=== PATIENT | female | born 1950 | race Caucasian/White ===

== ENCOUNTER → 2017-05-26 | Outpatient (CLI) | payer MEDICARE ==
[~2017-05-26] MED LIST: BARIUM SUSPENSION 105% (LIQUID POLIBAR PLUS) 240 ML/DOSE PO ONE; BARIUM SUSPENSION 60% (LIQUID EZ PAQUE) 240 ML DOSE PO ONE
--- NOTE | 2017-05-26 12:13 | Diagnostic Imaging Report ---
EXAMINATION: Upper GI study, double contrast. Funeral Pre Arrangement Counselor image of the abdomen was performed. After the oral administration of gas forming granules, the patient drank thick and thin barium with visualization under fluoroscopy, with spot images taken over the esophagus, stomach and duodenum and followed by overhead images in the chest and abdomen. INDICATION: Gastroesophageal reflux. FLUOROSCOPY TIME: One minutes and 15 seconds. FINDINGS: Funeral Pre Arrangement Counselor images of the abdomen demonstrate mild to moderate amount of fecal material. There is a right hip replacement and surgical clips in the upper right abdomen. The esophagus demonstrates normal caliber with no strictures. The mucosal pattern demonstrates no filling defects, diverticulum or ulceration. There is normal relaxation of the distal sphincter. There is however from a tertiary contractions suggestive of mild motility dysfunction probably related to age. There is no hiatal hernia. The stomach demonstrates normal distensibility with normal appearance of the mucosal folds. There are no ulcers or evidence of mass. The duodenal bulb and sweep appear normal. IMPRESSION: No significant abnormality. Dictated by: Dictated on workstation # [id number]
== END ==
LOC: RAD 10:26
PROVIDERS: ATTEND Surgery
DX: K21.9 Gastro-esophageal reflux disease without esophagitis (principal)
CPT/HCPCS: 74241

== ENCOUNTER 2017-06-15 12:46 | Outpatient (CLI) | payer MEDICARE, OTHER ==
[~2017-06-15] VITALS: Ht 147.3 cm; Wt 73.0 kg
[2017-06-15 13:02] VITALS: BP 152/73
[2017-06-15] MEDS ORDERED: METF500T4 PO (15:08)
[2017-06-15] MEDS ORDERED: PARO20TA5 PO (15:08)
[2017-06-15] MEDS ORDERED: AMLO5TAB2 PO (15:08)
[2017-06-15] MEDS ORDERED: GABA-488 PO (15:08)
[2017-06-15] MEDS ORDERED: HYDR25TA4 PO (15:08)
[2017-06-15] MEDS ORDERED: VNL37.5T PO (15:08)
[2017-06-15] MEDS ORDERED: POLY17PO6 PO (15:12)
[2017-06-15] MEDS ORDERED: PEDI1TAB35 PO (15:13)
== END 2017-06-15 13:15 | disposition home or self-care (01) ==
LOC: PREOP 12:46
PROVIDERS: ATTEND Surgery
DX: Z01.818 Encounter for other preprocedural examination (principal); E66.01 Morbid (severe) obesity due to excess calories
CPT/HCPCS: 87081

== ENCOUNTER 2017-06-18 11:22 | Inpatient (IN) | payer MEDICARE, OTHER ==
[~2017-06-18] VITALS: Ht 147.3 cm; Wt 73.0 kg
[~2017-06-18 11:22] MED LIST changes: +AMLO5TAB2 PO; -BARIUM SUSPENSION 105% (LIQUID POLIBAR PLUS) 240 ML/DOSE PO ONE; -BARIUM SUSPENSION 60% (LIQUID EZ PAQUE) 240 ML DOSE PO ONE; +GABA-488 PO; +HYDR25TA4 PO; +METF500T4 PO; +PARO20TA5 PO; +PEDI1TAB35 PO; +POLY17PO6 PO; +VNL37.5T PO
[2017-06-18 12:05] VITALS: BP 140/70
[2017-06-18] MEDS: LACTATED RINGERS 1,000 ML IV PRN ×2 (12:45→15:30)
[2017-06-18] MEDS ORDERED: BUP/EPI 0.5% 1:200,000 (MARCAINE) 10ML VIAL IJ ONE (12:49)
[2017-06-18] MEDS ORDERED: ROCURONIUM 50 MG/5 ML (ZEMURON) VIAL IV ONE ×2 (13:13→15:08)
[2017-06-18] MEDS ORDERED: LIDOCAINE PF 2% 5 ML (XYLOCAINE) VIAL ONE (13:13)
[2017-06-18] MEDS ORDERED: proPOfol 200 MG/20 ML (DIPRIVAN) VIAL IV ONE (13:13)
[2017-06-18] MEDS ORDERED: fentaNYL INJECTION 100 MCG/2 ML AMP ONE ×2 (13:13→15:19)
[2017-06-18] MEDS ORDERED: ONDANSETRON 4 MG/2 ML (SDV) Z0FRAN IV ONE (13:15)
[2017-06-18] MEDS ORDERED: MIDAZOLAM 2 MG/2 ML (VERSED) VIAL IV ONE (13:15)
[2017-06-18] MEDS ORDERED: ceFAZolin 1 GM/NS 50 ML IVPB IV ONE ×2 (13:15)
[2017-06-18] MEDS ORDERED: FAMOTIDINE 20MG/2ML IV (PEPCID) IV ONE (13:15)
--- NOTE | 2017-06-18 13:24 | Progress Note-Pre Operative ---
Pre-Operative Progress Note H&P Reviewed The H&P was reviewed, patient examined and no changes noted. Date Seen by Provider: Jun 18, 2017 Time Seen by Provider: 13:00 Date H&P Reviewed: Jun 18, 2017 Time H&P Reviewed: 13:00 Pre-Operative Diagnosis: morbid obesity, diabetes SEBASTIÁN HUIZAR MD Jun 18, 2017 1:24 pm
[2017-06-18] MEDS ORDERED: morphine INJ 10 MG/ML 1ML (SYR OR VIAL) ONE (14:13)
[2017-06-18] MEDS ORDERED: MEPERIDINE (DEMEROL) INJ 50 MG/ML ONE (14:13)
[2017-06-18] MEDS ORDERED: SEVOFLURANE (ULTANE) 15 ML INHAL SOLN ONE ×8 (14:26→16:07)
[2017-06-18 16:00] VITALS: BP 182/83
[2017-06-18] MEDS ORDERED: NEOSTIGMINE (BLOXIVERZ ) 1 MG/1ML 10 ML VIAL ONE (16:06)
[2017-06-18] MEDS ORDERED: GLYCOPYRROLATE 0.2 MG/ML (ROBINUL) 2 ML VIAL ONE (16:06)
[2017-06-18] MEDS ORDERED: NS IV 1000 ML 1,000 ML IV SCH (16:18)
--- NOTE | 2017-06-18 16:18 | Progress Note-Post Operative ---
Post-Operative Progess Note Surgeon (s)/Digital Media Designer (s) Surgeon SEBASTIÁN HUIZAR MD Digital Media Designer: jeff ward MAINTENANCE CARPENTER Pre-Operative Diagnosis morbid obesity, diabetes Post-Operative Diagnosis same Procedure & Operative Findings Date of Procedure 06/18/17 Procedure Performed/Findings laparoscopic gastric sleeve resection. Anesthesia Type GET Estimated Blood Loss Estimated blood loss (mL): minimal Specimens/Packing Specimens Removed stomach SEBASTIÁN HUIZAR MD Jun 18, 2017 4:18 pm
[2017-06-18] MEDS ORDERED: diphenhydrAMINE 50 MG/ML INJ (BENADRYL) IVP PRN (16:30)
[2017-06-18] MEDS ORDERED: ONDANSETRON 4 MG/2 ML (SDV) Z0FRAN IV PRN (16:30)
[2017-06-18] MEDS ORDERED: diphenhydrAMINE 50 MG/ML INJ (BENADRYL) IV PRN (16:30)
[2017-06-18] MEDS ORDERED: METOCLOPRAMIDE INJ 10 MG/2 ML (REGLAN) IV PRN (16:30)
[2017-06-18] MEDS ORDERED: fentaNYL PCA 300 MCG/30 ML VIAL IV PRN (16:30)
[2017-06-18] MEDS ORDERED: oxyCODONE 20 MG/1 ML ORAL CONC (RoxiCODONE) CHARGE PER 1 ML PO PRN (16:30)
[2017-06-18] MEDS ORDERED: RT-ALBUTEROL SULF 2.5 MG/3 ML PRE-MIX VIAL INH SCH (16:30)
[2017-06-18] MEDS ORDERED: NALOXONE 0.4 MG/ML 1 ML (NARCAN) VIAL IV PRN (16:30)
[2017-06-18] MEDS ORDERED: LABETALOL HCL 20 MG/4 ML VIAL IV ONE (16:45)
[2017-06-18] MEDS ORDERED: morphine INJ 10 MG/ML 1ML (SYR OR VIAL) IVP PRN (16:45)
[2017-06-18] MEDS ORDERED: ONDANSETRON 4 MG/2 ML (SDV) Z0FRAN IVP PRN (16:45)
[2017-06-18] MEDS ORDERED: PROMETHAZINE INJ 25 MG/ML (PHENERGAN) AMP IVP PRN (16:45)
[2017-06-18] MEDS ORDERED: HYDROmorphone (DILAUDID) 2 MG/ML VIAL IVP PRN (16:45)
[2017-06-18] MEDS: LACTATED RINGERS 1,000 ML IV SCH ×2 (16:51→18:49)
[2017-06-18] MEDS: metroNIDAZOLE 500MG/100ML IVPB 100 ML IV SCH (17:05)
[2017-06-18] MEDS ORDERED: hydrALAZINE (APESOLINE) 20 MG/ML VIAL IV ONE (17:30)
[2017-06-18 17:49] VITALS: BP 182/83
[2017-06-18] MEDS: ONDANSETRON 4 MG/2 ML (SDV) Z0FRAN IVP SCH (17:55)
[2017-06-18] MEDS: METOCLOPRAMIDE INJ 10 MG/2 ML (REGLAN) IVP SCH (17:55)
[2017-06-18 18:49] VITALS: BP 181/82
[2017-06-18 20:20] VITALS: BP 179/80
[2017-06-18] MEDS: meTOprolol 5 MG/5 ML (LOPRESSOR) VIAL IVP SCH (20:27)
[2017-06-18] MEDS: ENOXAPARIN 30 MG/0.3 ML (LOVENOX) SYR SC SCH (20:27)
[2017-06-18] MEDS ORDERED: INFLUENZA TRIvalent 2017-2018 0.5 ML/45 MCG SYR IM ONE (20:45)
[2017-06-18 21:13] VITALS: BP 181/90
[2017-06-18] MEDS: ceFAZolin 2 GM/50 ML NS 50 ML IV SCH (21:18)
[2017-06-18] MEDS: RT-ALBUTEROL SULF 2.5 MG/3 ML PRE-MIX VIAL INH SCH (22:10)
[2017-06-19] VITALS: BP 181/78
[2017-06-19] MEDS: ONDANSETRON 4 MG/2 ML (SDV) Z0FRAN IVP SCH ×3 (00:12→11:43)
[2017-06-19] MEDS: meTOprolol 5 MG/5 ML (LOPRESSOR) VIAL IVP SCH ×4 (00:13→11:45)
[2017-06-19] MEDS: METOCLOPRAMIDE INJ 10 MG/2 ML (REGLAN) IVP SCH ×3 (00:14→12:18)
[2017-06-19] MEDS: metroNIDAZOLE 500MG/100ML IVPB 100 ML IV SCH ×2 (00:19→08:22)
[2017-06-19] MEDS: RT-ALBUTEROL SULF 2.5 MG/3 ML PRE-MIX VIAL INH SCH ×4 (02:44→10:32)
[2017-06-19] MEDS: LACTATED RINGERS 1,000 ML IV SCH ×2 (03:08→11:48)
[2017-06-19 04:00] VITALS: BP 167/83
[2017-06-19] MEDS: ceFAZolin 2 GM/50 ML NS 50 ML IV SCH (06:01)
[2017-06-19 06:49] LABS: MEAN PLATELET VOLUME 11.5 FL (7.4-10.4); RED BLOOD COUNT 4.7 10^6/uL (4.35-5.85); WHITE BLOOD COUNT 8.9 10^3/uL (4.3-11.0)
[2017-06-19] MEDS ORDERED: PANTOPRAZOLE 40 MG/10 ML (PROTONIX) VIAL IV SCH (07:00)
[2017-06-19 07:09] LABS: ANION GAP 14 MMOL/L (5-14); BLOOD UREA NITROGEN 9 MG/DL (7-18); BUN/CREATININE RATIO 12; CALCIUM 8.9 MG/DL (8.5-10.1); CARBON DIOXIDE 25 MMOL/L (21-32); CHLORIDE 97 MMOL/L (98-107); CREATININE SERUM 0.75 MG/DL (0.60-1.30); GFR ESTIMATED > 60; GLUCOSE 132 MG/DL (70-105); POTASSIUM 3.3 MMOL/L (3.6-5.0); SODIUM 136 MMOL/L (135-145)
[2017-06-19 08:00] VITALS: BP 194/83
[2017-06-19] MEDS: ENOXAPARIN 30 MG/0.3 ML (LOVENOX) SYR SC SCH (08:22)
[2017-06-19] MEDS ORDERED: SENNA W/DOCUSATE (SENOKOT S) TABLET PO SCH (09:00)
--- NOTE | 2017-06-19 10:20 | Anesthesia-General Post-Op ---
General Patient Condition Mental Status/LOC: Same as Preop Cardiovascular: Satisfactory Nausea/Vomiting: Absent Respiratory: Satisfactory Pain: Controlled Complications: Absent Post Op Complications Complications None Follow Up Care/Instructions Patient Instructions None needed. Anesthesia/Patient Condition Patient Condition Patient is doing well, no complaints, stable vital signs, no apparent adverse anesthesia problems. No complications reported per nursing. JOCELYN HEBERT CRNA Jun 19, 2017 10:20
--- NOTE | 2017-06-19 11:38 | Progress Note (SOAP) ---
Subjective Date Seen by Provider: Jun 19, 2017 Time Seen by Provider: 11:30 Subjective/Events-last exam doing well. tolerating clear liquid diet. pain controlled. Objective Exam Vital Signs Date Time Temp Pulse Resp B/P (MAP) Pulse Ox O2 Delivery O2 Flow Rate FiO2 06/19/17 10:32 98 Nasal Cannula 2.00 06/19/17 08:00 99.8 75 20 194/83 96 Nasal Cannula 2.00 06/19/17 07:12 97 Nasal Cannula 2.00 06/19/17 04:00 98.2 87 13 167/83 97 Nasal Cannula 2.00 06/19/17 02:44 96 Nasal Cannula 2.00 06/19/17 01:00 74 06/19/17 00:00 97.6 80 12 181/78 96 Nasal Cannula 2.00 06/18/17 22:10 97 Nasal Cannula 2.00 06/18/17 21:13 99.2 78 18 181/90 94 Nasal Cannula 2.00 06/18/17 21:00 Nasal Cannula 2.00 06/18/17 20:20 98.3 81 19 179/80 96 Nasal Cannula 2.00 06/18/17 20:09 79 06/18/17 18:49 98.0 75 18 181/82 94 Nasal Cannula 2.00 06/18/17 18:40 95 Nasal Cannula 2.00 06/18/17 18:28 20 06/18/17 17:50 Nasal Cannula 2.00 06/18/17 17:49 97.7 75 20 182/83 95 Nasal Cannula 2.00 06/18/17 12:05 98.0 65 18 140/70 95 Room Air Capillary Refill : General Appearance: No Apparent Distress HEENT: PERRL/EOMI Neck: Full Range of Motion, Normal Inspection Respiratory: Chest Non Tender, Lungs Clear, Normal Breath Sounds Cardiovascular: Regular Rate, Rhythm Gastrointestinal: normal bowel sounds, soft, other (clean/dry) Extremity: Normal Capillary Refill Neurologic/Psychiatric: Alert, Oriented x3 Skin: Normal Color Lymphatic: No Adenopathy Results Lab Laboratory Tests 06/18/17 12:09: Glucometer 90 06/18/17 16:56: Glucometer 102 06/18/17 19:57: Glucometer 144H 06/19/17 00:14: Glucometer 137H 06/19/17 04:00: Glucometer 138H 06/19/17 06:37: White Blood Count 8.9, Red Blood Count 4.70, Hemoglobin 13.8, Hematocrit 41, Mean Corpuscular Volume 87, Mean Corpuscular Hemoglobin 29, Mean Corpuscular Hemoglobin Concent 34, Red Cell Distribution Width 15.0H, Platelet Count 280, Mean Platelet Volume 11.5H, Sodium Level 136, Potassium Level 3.3L, Chloride Level 97L, Carbon Dioxide Level 25, Anion Gap 14, Blood Urea Nitrogen 9, Creatinine 0.75, Estimat Glomerular Filtration Rate > 60, BUN/Creatinine Ratio 12, Glucose Level 132H, Calcium Level 8.9 06/19/17 08:04: Glucometer 127H Assessment/Plan Assessment/Plan Assess & Plan/Chief Complaint s/p lap sleeve gastrectomy. increase ambulation. continue phase 1 clear liquid diet. Clinical Quality Measures DVT/VTE Risk/Contraindication: Risk Factor Score Per Nursin RFS Level Per Nursing on Admit: 4+=Very High SEBASTIÁN HUIZAR MD Jun 19, 2017 11:38
[2017-06-19] MEDS ORDERED: PANT40TA2 PO (11:49)
[2017-06-19] MEDS ORDERED: HYDR-3816 PO (11:49)
[2017-06-19] MEDS ORDERED: ONDN4T PO (11:49)
[2017-06-19] MEDS ORDERED: INFLUENZA TRIvalent 2017-2018 0.5 ML/45 MCG SYR IM ONE (11:52)
--- NOTE | 2017-06-19 11:52 | Discharge Inst-Surgical ---
D/C Lap Instructions-BHUPENDRA Follow Up Appt in 2 weeks Activity as tolerated No driving for 24 hours No [address] while on pain medications Incentive Spirometry use every 2 hours while awake Phase 1 clear liquid diet 2 weeks. Avoid Alcohol, Caffeine, Spicy [place] and Acid foods. Drink 64 fluid oz or more of fluids per day. Symptoms to Report: Fever over 101 degree F, Nausea/Vomiting If any problems/questions: Contact your physician or go to Emergency Room SEBASTIÁN HUIZAR MD Jun 19, 2017 11:52
[2017-06-19 12:00] VITALS: BP 195/91
--- NOTE | 2017-06-19 12:40 | Progress Note (SOAP) ---
Subjective Subjective/Events-last exam I saw Joy as a request for medicine consult after her gastric sleeve surgery by Dr Tipton yesterday. This morning, Joy states she is doing well. Is still NPO, has not passed flatus as yet. Has not had her usual pill regimen as yet. Review of Systems Date Seen by Provider: Jun 19, 2017 Time Seen by Provider: 09:00 Pulmonary: No Dyspnea Cardiovascular: No: Chest Pain Objective Exam Last Set of Vital Signs Vital Signs Date Time Temp Pulse Resp B/P (MAP) Pulse Ox O2 Delivery O2 Flow Rate FiO2 06/19/17 12:07 97.8 06/19/17 10:32 98 Nasal Cannula 2.00 06/19/17 08:00 75 20 194/83 Capillary Refill : I&O Intake and Output 06/20/17 00:00 Intake Total 2150 ml Output Total 1900 ml Balance 250 ml Intake Oral 0 ml IV Total 2150 ml Output Urine Total 1900 ml General: Alert, Oriented X3, Cooperative, No Acute Distress Lungs: Clear to Auscultation, Normal Air Movement Heart: Regular Rate, Normal S1, Normal S2, No Murmurs, Gallops, Rubs Abdomen: Normal Bowel Sounds, Soft, No Tenderness, No Hepatosplenomegaly, No Masses Extremities: No Clubbing, No Cyanosis, No Edema Skin: No Rashes, No Breakdown Neuro: Normal Speech Psych/Mental Status: Mental Status NL, Mood NL Results/Procedures Lab Laboratory Tests 06/18/17 16:56: Glucometer 102 06/18/17 19:57: Glucometer 144H 06/19/17 00:14: Glucometer 137H 06/19/17 04:00: Glucometer 138H 06/19/17 06:37: White Blood Count 8.9, Red Blood Count 4.70, Hemoglobin 13.8, Hematocrit 41, Mean Corpuscular Volume 87, Mean Corpuscular Hemoglobin 29, Mean Corpuscular Hemoglobin Concent 34, Red Cell Distribution Width 15.0H, Platelet Count 280, Mean Platelet Volume 11.5H, Sodium Level 136, Potassium Level 3.3L, Chloride Level 97L, Carbon Dioxide Level 25, Anion Gap 14, Blood Urea Nitrogen 9, Creatinine 0.75, Estimat Glomerular Filtration Rate > 60, BUN/Creatinine Ratio 12, Glucose Level 132H, Calcium Level 8.9 06/19/17 08:04: Glucometer 127H Assessment/Plan Assessment/Plan Admission Dx HTN HL OBESITY Plan Patient is doing well from a medical perspective. I recommend starting her usual medication regimen today. As she will not need active toggling of insulin or her BP meds, I will sign off now. Please reconsult me if you have additional concerns. Diagnosis/Problems: Clinical Quality Measures DVT/VTE Risk/Contraindication: Risk Factor Score Per Nursin RFS Level Per Nursing on Admit: 4+=Very High BRODY HOLT MD Jun 19, 2017 12:40 pm
--- NOTE | 2017-06-19 15:16 | OPERATIVE REPORT ---
DATE OF SERVICE: 06/18/2017 ATTENDING PRIMARY CARE PHYSICIAN: Florencia Sultana DO PREOPERATIVE DIAGNOSES: Morbid obesity, diabetes, hypertension. POSTOPERATIVE DIAGNOSES: Morbid obesity, diabetes, hypertension. PROCEDURE: Laparoscopic gastric sleeve resection. SURGEON: Sebastián Huizar MD CORDUROY CUTTING SUPERVISOR: Bahman Palencia APRN. ANESTHESIA: General endotracheal. ESTIMATED BLOOD LOSS: Minimal. FINDINGS: Moderate liver steatosis with early cirrhotic changes identified. DISPOSITION: The patient tolerated the procedure well. INDICATIONS OF PROCEDURE: The patient is a 66-year-old female with a history of morbid obesity and medical comorbidities related to her obesity including hypertension, diabetes and COPD. She reports that she gained the majority of her adult weight in her 20s. She states that since that time, she has always felt that she has been overweight and has suffered medical problem since that time. She has tried a number of diet and exercise attempts as well as medications in the past, which were unsuccessful. She has tried diet programs including low-carbohydrate, low-calorie diets as well as pre-package diets with minimal success. She has also tried a number of exercise regimens over the past including walking, treadmill, exercise classes as well as resistance training again with minimal success. She has also tried medications including beta hCG as well as phentermine for approximately 4 months and does state that she did lose the most amount of weight during that timeframe; however, after discontinuation of the medication, regained the weight back as well as more over time. Her medical comorbidities related to her obesity include diabetes, hypertension and COPD. DESCRIPTION OF PROCEDURE: The patient was brought to the operating room and laid supine on the table. After adequate IV pain and sedative medications and general endotracheal intubation, the abdomen was prepped and draped in standard surgical fashion. Marcaine 0.5% with epinephrine was then used to anesthetize the overlying skin in the left upper abdominal quadrant and a small transverse skin incision made using a 15 blade. An 0 silk suture was applied to the medial aspect of the incision for retraction and a Veress needle was inserted with a low-opening pressure of 0 mmHg. The Veress needle was removed and a 5-mm Xcel trocar placed followed by a 5-mm 45-degree angle laparoscope visualizing the peritoneal cavity. A 4-quadrant abdominal exploration was performed. There was a moderate liver steatosis as well as early cirrhotic changes. There was a surgically absent gallbladder. The remainder of the omentum, stomach and small bowel appeared normal. There was no hiatal hernia identified. Under direct visualization, we then proceeded to place a midabdominal, left of midline, 10-mm port after the skin and peritoneum were anesthetized using 0.5% Marcaine with epinephrine and a transverse skin incision made using a 15 blade. In a similar manner, a midabdominal, right of midline, 15-mm port was placed followed by a right upper abdominal quadrant 5-mm port. An area in the epigastric region was then anesthetized and an opening created through the abdominal wall layers using a trocar through a 5-mm port. Through this opening, a medium-sized Choco liver retractor was placed and the left lobe of the liver retracted anteriorly and superiorly. The patient was then placed in steep reverse Trendelenburg position. We then measured 6 cm from the pylorus along the greater curvature and marked this with a marking pen. The gastrocolic ligament next to the stomach was then opened using a Sonicision. We then proceeded with inferior dissection until we were approximately 2 cm below our marking with the Sonicision with visualization of good hemostasis. We then proceeded with cephalad dissection, taking down the short gastric vessels as well. The entire angle of His connective tissue fibers were dissected as well as the posterior stomach behind it. A 42-[place] bougie was then placed under direct visualization and directed into the pylorus. We used this as a stapled guide. A 45-mm polyglycolic acid black load was then used to staple and transect the stomach 2 cm below our marking. We then proceeded with a total of 360 cm black load ad due to the stomach thickness until the gastric sleeve was completed leaving approximately 2 cm near the gastroesophageal junction. Good hemostasis was observed. The staple line was then re-inforced with 5 mm clips at the corners. Tisseel fibrin glue was then placed on to the staple line and the omentum placed back over the staple line. The liver retractor was then removed. The stomach was removed through the 15-mm port site. The fascia and peritoneum to the 15 and 10-mm ports were then closed under direct visualization using a Que-Vinh device and 0 Vicryl suture. The abdomen was desufflated. The remaining ports removed. All skin incisions were closed using 4-0 Monocryl running subcuticular sutures. Wounds were then cleaned and covered with Dermabond. The patient tolerated the procedure well. We will admit her to the surgical floor and start pain medication with a CHRISTIAN SCIENCE NURSE pump. We will also proceed with IV nausea medication with Zofran and Reglan. We will proceed with DVT prophylaxis with early ambulation and calf SCDs as well as Lovenox injections. Tomorrow morning, we will start the patient on a clear-liquid diet. Once she is tolerating at least 60 mL of fluid for half hour, has good pain control with oral pain medication and is ambulating well, we will discharge her home. Job ID: [id number] DocumentID: [id number] Dictated Date: 06/18/2017 16:45:22 Waterworks Chief Engineer Date: 06/19/2017 04:48:43 Dictated By: SEBASTIÁN HUIZAR MD
[2017-06-19] MEDS ORDERED: METOCLOPRAMIDE INJ 10 MG/2 ML (REGLAN) IVP PRN (16:30)
[2017-06-19] MEDS ORDERED: ONDANSETRON 4 MG/2 ML (SDV) Z0FRAN IVP PRN (16:30)
== END 2017-06-19 12:50 | disposition home or self-care (01) | DRG 621 ==
LOC: SURGICAL 11:57 → UNDOADMIN 11:58 → SURG 11:58 → SURGICAL 11:58 → EDSTATUS 13:45 → 4TH 17:49
PROVIDERS: ADMIT Surgery; ATTEND Surgery
PROC: 0DB64Z3 Excision of Stomach, Percutaneous Endoscopic Approach, Vertical (ICD-10-PCS; principal; 2017-06-18 14:38)
DX: E66.01 Morbid (severe) obesity due to excess calories (principal); Z68.33 Body mass index [BMI] 33.0-33.9, adult; K76.0 Fatty (change of) liver, not elsewhere classified; E11.43 Type 2 diabetes mellitus with diabetic autonomic (poly)neuropathy; J44.9 Chronic obstructive pulmonary disease, unspecified; I10 Essential (primary) hypertension; F32.9 Major depressive disorder, single episode, unspecified; F41.9 Anxiety disorder, unspecified; M06.9 Rheumatoid arthritis, unspecified; Z79.84 Long term (current) use of oral hypoglycemic drugs; Z23 Encounter for immunization
CPT/HCPCS: 36415; 80048; 82962; 85027; 94640; 94664; 94760